=== PATIENT | female | born 1990 | race Caucasian/White ===

== ENCOUNTER → 2019-06-12 10:08 | Outpatient (CLI) | payer OTHER, SELFPAY ==
[2019-06-12 14:35] LABS: Urine Chlamydia NOT DETECTED; Urine N gonorrhoeae NOT DETECTED
== END ==
PROVIDERS: Visit Provider Obstetrics & Gynecology
DX: Z34.01 Encounter for supervision of normal first pregnancy, first trimester (principal)
CPT/HCPCS: 87491; 87591

== ENCOUNTER → 2019-06-26 14:56 | Outpatient (RCR) | payer OTHER, SELFPAY ==
[2019-06-26] MEDS: LACTATED RINGERS 1,000 ML 1000 ML IV (16:01)
[2019-06-26] MEDS: ONDANSETRON 4 MG/2 ML INJ IV ×2 (16:07→19:11)
[2019-06-26 16:12] VITALS: BP 119/74; PULSE 66; RESP 16; TEMP 36.6
[2019-06-26 16:16] LABS: Blood Urea Nitrogen 8 mg/dL (7-17); Calcium 10.2 mg/dL (8.4-10.2); Carbon Dioxide 22 mmol/L (22-32); Chloride 101 mmol/L (98-107); Estimated Glomerular Filt Rate > 60.0 mL/min (>60); Glucose 81 mg/dL (70-100); Sodium 135 mmol/L (137-145)
[2019-06-26 16:17] LABS: HEMOLYSIS 229 (0-50)
[2019-06-26 16:47] LABS: Potassium 4.8 mmol/L (3.4-5.1)
[2019-06-26] MEDS: MAGNESIUM SULFATE 2 GM, FOLIC ACID 1 MG, THIAMINE 100 MG, MULTIVITAMIN 10 ML in SODIUM ... IV (17:04)
--- NOTE | 2019-06-26 17:35 | PM.PN.1 ---
Subjective Subjective Date Patient Seen: 06/26/19 Time Patient Seen: 17:00 Interval history: This patient is a 29yo @8+1, sent to triage from the OB clinic due to nausea and vomiting of . The patient had been vomiting q3-4 hours, and was unable to keep even fluids down. She was sent for IV hydration and IV zofran. She denied OB complaints such as VB or cramping, and denied diarrhea, abdominal pain, fevers, chills, flank pain, dysuria, or any other complaints. The nausea has been slowly worsening over the past two weeks, and she has zofran at home but has been avoiding using it out of concern about using medications. 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 Overall appearance much improved since clinic. Const General: cooperative, healthy appearing and comfortable Orientation: alert, awake and oriented x3 Objective Labs Result Diagrams: 06/26/19 15:50 Labs: Laboratory Results - last 24 hr 06/26/19 15:50 Sodium 135 L Potassium 4.8 Chloride 101 Carbon Dioxide 22 BUN 8 Creatinine 0.50 L Estimated GFR > 60.0 BUN/Creatinine Ratio 16.0 Glucose 81 Calcium 10.2 Assessment & Plan Assessment & Plan narrative: This patient is a 29-year-old at 8 weeks 1 day presenting for IV hydration, IV antiemetics, and a p.o. challenge. We discussed that the patient has outpatient medications that she can use including using vitamin B6 and Unisom to approximate diclegis, which is not covered by her insurance. The patient will also be given a renewal of ODT Zofran. The patient will also be referred to the Infusion Center, where she can present for IV hydration and IV Zofran as needed. We discussed the expected time course of her nausea and vomiting of , symptoms to look out for common reasons for return. We discussed that should the patient get home and be unable to tolerate p.o. intake or maintain her hydration status, she should return to the emergency room and will require admission for further antiemetic therapy. Time Spent With Patient Time with patient: 25 - 35 minutes
== END ==
LOC: INF 14:56
PROVIDERS: Visit Provider Obstetrics & Gynecology
DX: O21.0 Mild hyperemesis gravidarum (principal); Z3A.08 8 weeks gestation of pregnancy
CPT/HCPCS: 36592; 80048; J3475

== ENCOUNTER 2019-07-10 16:33 | Observation (INO) | payer OTHER, SELFPAY ==
[2019-07-10] MEDS: LACTATED RINGERS 1,000 ML 1000 ML IV (17:00)
[2019-07-10] MEDS: ONDANSETRON 4 MG/2 ML INJ IV (17:28)
--- NOTE | 2019-07-10 17:53 | P.TNLD_ITS ---
Visit Information Visit Information Primary OB Provider: Winter Larios On-call OB Provider: Winter Larios Reason for Evaluation: Yes other Comments/Additional reasons for admission: This patient is a 29-year-old at 10 weeks 1 day with a history of nausea and vomiting of , presenting with worsening nausea and vomiting and intolerance of p.o. intake since last night. The patient reports that since her admission 2 weeks ago, she had been doing well on the regimen of B6 and Unisom with Zofran for breakthrough symptoms, not requiring a visit to the Infusion Center. However, over the weekend, she went on a family camping trip, and was left adherent to this regimen. She reports that she began having nausea and vomiting yesterday evening, and this worsened over night and this morning until she was unable to tolerate any p.o. intake. She presented to the hospital for evaluation. She denies any other obstetrical complaints. Vital Signs Vital Signs: 113/54, HR 64, 97.6F PFSH Surgical History Anesthesia (Resolved) [place] teeth removed (Acute ~2011) Family History Father History of factor V Leiden mutation Hypertension Hyperlipidemia Mother CMML (chronic myelomonocytic leukemia) Cancer Hyperlipidemia Hypertension Sister Hypothyroidism Sister History of factor V Leiden mutation Grandfather Skin cancer AAA (abdominal aortic aneurysm) Grandmother Stroke Grandfather History of factor V Leiden mutation History of heart disease Grandmother Diabetes mellitus Social History marital status: household members: spouse pets and animals: Yes (dogs) education level: college 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 movement visualized, adequate fluid. Skin General: no rashes or lesions noted and elasticity normal Diagnosis, Plan/Disposition Final Diagnosis (1) Nausea and vomiting during : Current Visit: Yes Status: Acute Problem details: This patient is already feeling improved, having received most of a L of lactated Ringer's and IV Zofran. The patient has crackers and Sprite at bedtime, and is beginning a p.o. challenge. status is reassuring. We discussed resuming her prior effective regimen, and calling or presenting to the Infusion Center as necessary. The patient vocalized understanding. Plan/Disposition Plan: Patient for discharge home when tolerating p.o.. OB Disposition: home
[2019-07-10 18:22] VITALS: BP 113/54; RESP 18; TEMP 36.4
[2019-07-10 18:26] VITALS: BP 113/54; RESP 18; TEMP 36.4
== END 2019-07-10 18:05 | disposition home or self-care (01) ==
LOC: LABOR 16:34
PROVIDERS: Admitting Provider Obstetrics & Gynecology; Visit Provider Obstetrics & Gynecology
DX: O21.9 Vomiting of pregnancy, unspecified (principal); Z3A.10 10 weeks gestation of pregnancy
CPT/HCPCS: 76815; 96360; G0378; G0379; J2405

== ENCOUNTER → 2019-07-12 14:55 | Outpatient (CLI) | payer OTHER, SELFPAY ==
[2019-07-12 15:23] LABS: Appearance Urine UA CLEAR; Bilirubin Urine UA NEGATIVE (NEGATIVE); Color Urine UA YELLOW; Glucose Urine UA NEGATIVE (Negative); Ketones Urine UA NEGATIVE (NEGATIVE); Leukocyte Esterase Urine UA NEGATIVE (NEGATIVE); Nitrite Urine UA NEGATIVE (Negative); Occult Blood Urine UA NEGATIVE (Negative); Protein Urine UA NEGATIVE (Negative); Specific Gravity Urine UA <=1.005 (1.000-1.035)
[2019-07-12 15:23] LABS: Add Manual Diff / Slide Review NO; Basophils Absolute Auto 0 /uL (0-100); Basophils Percent Auto 0.4 % (0-2); Eosinophils Absolute Auto 100 /uL (0-450); Eosinophils Percent Auto 0.8 % (2-4); Hemoglobin 13.8 g/dL (12.0-16.0); Lymphocytes Absolute Auto 2800 /uL (1100-4500); Mean Corpuscular HGB Conc 33.6 % (30-36); Mean Corpuscular Hemoglobin 29.8 PG (26-34); Mean Corpuscular Volume 88.7 fL (80-100); Monocytes Absolute Auto 700 /uL (0-900); Monocytes Percent Auto 7.4 % (3-14); Neutrophils Absolute Auto 5700 /uL (1500-7000); Neutrophils Percent Auto 61.4 % (50-75); Platelet Count 296 X10^3/uL (150-400); Red Blood Cell Count 4.62 X10^6/uL (4.0-5.2); White Blood Cell Count 9.2 X10^3/uL (4.5-11.0)
[2019-07-12 15:25] LABS: pH Urine UA 6.5 (4.5-8.0)
[2019-07-12 16:45] LABS: Hepatitis B Surface Antigen NEGATIVE s/c (NEGATIVE); Rubella Antibody IgG 89.8 IU/mL (>15)
[2019-07-12 17:13] LABS: HIV 1 & 2 Ab/Ag 4th Gen Combo NEGATIVE (NEGATIVE); Hep C Virus Ab w/Reflex Quant NEGATIVE s/c (NEGATIVE)
[2019-07-14 19:27] LABS: RPR Screen Nonreactive (Nonreactive)
== END ==
PROVIDERS: Visit Provider Obstetrics & Gynecology
DX: D68.51 Activated protein C resistance (principal); Z34.01 Encounter for supervision of normal first pregnancy, first trimester
CPT/HCPCS: 36415; 80055; 81003; 86787; 86803; 86850; 86900; 86901; 87086; 87389

== ENCOUNTER → 2019-11-06 15:49 | Outpatient (CLI) | payer OTHER, SELFPAY ==
[2019-11-06 17:32] LABS: Hematocrit 38.2 % (36-46); Hemoglobin 12.6 g/dL (12.0-16.0)
[2019-11-06 19:20] LABS: GTT (PREG) 1 Hour PP 50gm Dose 145 mg/dL (76-139)
== END ==
PROVIDERS: PCP Nurse Practitioner Family; Referring Provider Obstetrics & Gynecology; Visit Provider Obstetrics & Gynecology
DX: Z34.02 Encounter for supervision of normal first pregnancy, second trimester (principal); Z3A.25 25 weeks gestation of pregnancy
CPT/HCPCS: 36415; 82950; 85014; 85018; 86850

== ENCOUNTER → 2019-12-26 08:16 | Outpatient (CLI) | payer OTHER, SELFPAY ==
[2019-12-26 09:42] LABS: Add Manual Diff / Slide Review NO; Basophils Absolute Auto 0 /uL (0-100); Basophils Percent Auto 0.4 % (0-2); Eosinophils Absolute Auto 0 /uL (0-450); Eosinophils Percent Auto 0.3 % (2-4); Hemoglobin 13.1 g/dL (12.0-16.0); Lymphocytes Absolute Auto 1400 /uL (1100-4500); Lymphocytes Percent Auto 14.6 % (25-40); Mean Corpuscular HGB Conc 33.5 % (30-36); Mean Corpuscular Volume 89.7 fL (80-100); Monocytes Absolute Auto 700 /uL (0-900); Monocytes Percent Auto 7.6 % (3-14); Neutrophils Absolute Auto 7600 /uL (1500-7000); Neutrophils Percent Auto 77.1 % (50-75); Platelet Count 243 X10^3/uL (150-400); Red Blood Cell Count 4.35 X10^6/uL (4.0-5.2); White Blood Cell Count 9.8 X10^3/uL (4.5-11.0)
[2019-12-26 09:49] LABS: Aspartate Aminotransferase 18 IU/L (14-36); BUN Creatinine Ratio 19.1 (6-22); Blood Urea Nitrogen 9 mg/dL (7-17); Estimated Glomerular Filt Rate > 60.0 mL/min (>60); Uric Acid 5.2 mg/dL (2.5-6.2)
[2019-12-26 09:51] LABS: Creatinine Urine Random 217.6 mg/dL
[2019-12-26 09:54] LABS: Protein (Total) Urine Random < 5 mg/dL (0-12); Protein Creatinine Ratio Urine 0.02 GRAM/24H
== END ==
PROVIDERS: PCP Nurse Practitioner Family; Referring Provider Obstetrics & Gynecology; Visit Provider Obstetrics & Gynecology
DX: Z34.83 Encounter for supervision of other normal pregnancy, third trimester (principal)
CPT/HCPCS: 36415; 82570; 84156; 84450; 84550; 85025; 87086

== ENCOUNTER → 2020-01-02 08:54 | Outpatient (CLI) | payer OTHER, SELFPAY ==
[2020-01-03 10:55] LABS: Strep Grp B PCR NEG for Grp B Strep
== END ==
PROVIDERS: PCP Nurse Practitioner Family; Visit Provider Obstetrics & Gynecology
DX: Z34.03 Encounter for supervision of normal first pregnancy, third trimester (principal); Z3A.35 35 weeks gestation of pregnancy
CPT/HCPCS: 87653

== ENCOUNTER 2020-01-09 09:46 | Outpatient (CLI) | payer OTHER, SELFPAY ==
[2020-01-09 10:15] LABS: Add Manual Diff / Slide Review NO; Basophils Absolute Auto 0 /uL (0-100); Basophils Percent Auto 0.3 % (0-2); Eosinophils Absolute Auto 100 /uL (0-450); Eosinophils Percent Auto 0.7 % (2-4); Hematocrit 36.9 % (36-46); Hemoglobin 12.5 g/dL (12.0-16.0); Lymphocytes Absolute Auto 1600 /uL (1100-4500); Lymphocytes Percent Auto 17.1 % (25-40); Mean Corpuscular Hemoglobin 30.1 PG (26-34); Mean Corpuscular Volume 88.4 fL (80-100); Monocytes Absolute Auto 1000 /uL (0-900); Monocytes Percent Auto 10.2 % (3-14); Neutrophils Absolute Auto 6700 /uL (1500-7000); Neutrophils Percent Auto 71.7 % (50-75); Platelet Count 208 X10^3/uL (150-400); Red Blood Cell Count 4.17 X10^6/uL (4.0-5.2); Red Cell Distribution Width 14.1 % (11.6-14.8); White Blood Cell Count 9.4 X10^3/uL (4.5-11.0)
[2020-01-09 10:26] LABS: Aspartate Aminotransferase 18 IU/L (14-36); BUN Creatinine Ratio 18.2 (6-22); Blood Urea Nitrogen 8 mg/dL (7-17); Estimated Glomerular Filt Rate > 60.0 mL/min (>60)
--- NOTE | 2020-01-09 10:38 | P.TNLD_ITS ---
Visit Information Visit Information Date of evaluation: 01/09/20 Primary OB Provider: Winter Larios Reason for Evaluation: Yes non-stress test Comments/Additional reasons for admission: Patient is a 29yo @36 wks p resenting from office due to persistently elevated FHR in setting of copious movement. Patient has elevated BPs at home on home cuff that has readings significantly higher than clinic cuff today, for PIH labs given increased swelling. Vital Signs Vital Signs: 119/61, HR 78 PFSH Surgical History Anesthesia (Resolved) [place] teeth removed (Acute ~2010) Family History Father History of factor V Leiden mutation Hypertension Hyperlipidemia Mother CMML (chronic myelomonocytic leukemia) Cancer Hyperlipidemia Hypertension Sister Hypothyroidism Sister History of factor V Leiden mutation Grandfather Skin cancer AAA (abdominal aortic aneurysm) Grandmother Stroke Grandfather History of factor V Leiden mutation History of heart disease Grandmother Diabetes mellitus Social History marital status: household members: spouse pets and animals: Yes (dogs) education level: college 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) current occupational exposures/hazards: Yes seatbelt use: always Smoking Status: Never smoker substance use type: does not use Review of Systems Constitutional Constitutional: Reports system reviewed and no additional complaints, except as documented Objective Labs Result Diagrams: 01/09/20 10:09 01/09/20 10:09 Labs: Laboratory Results - last 24 hr 01/09/20 01/09/20 10:09 10:09 WBC 9.4 RBC 4.17 Hgb 12.5 Hct 36.9 MCV 88.4 MCH 30.1 MCHC 34.0 RDW 14.1 Plt Count 208 Neut % (Auto) 71.7 Lymph % (Auto) 17.1 L Callahan % (Auto) 10.2 Eos % (Auto) 0.7 L Baso % (Auto) 0.3 Neut # (Auto) 6700 Lymph # (Auto) 1600 Callahan # (Auto) 1000 H Eos # (Auto) 100 Baso # (Auto) 0 BUN 8 Creatinine 0.44 L Estimated GFR > 60.0 BUN/Creatinine Ratio 18.2 Uric Acid 5.0 AST 18 Evaluation Evaluation Baseline heart rate: 145 Variability: Average (6-10) monitor accelerations: Present monitor decelerations: Absent Category of Tracing: I Laboratory results: Laboratory Tests 01/09/20 01/09/20 10:09 10:09 WBC 9.4 RBC 4.17 Hgb 12.5 Hct 36.9 MCV 88.4 MCH 30.1 MCHC 34.0 RDW 14.1 Plt Count 208 Neut % (Auto) 71.7 Lymph % (Auto) 17.1 L Callahan % (Auto) 10.2 Eos % (Auto) 0.7 L Baso % (Auto) 0.3 Neut # (Auto) 6700 Lymph # (Auto) 1600 Callahan # (Auto) 1000 H Eos # (Auto) 100 Baso # (Auto) 0 BUN 8 Creatinine 0.44 L Estimated GFR > 60.0 BUN/Creatinine Ratio 18.2 Uric Acid 5.0 AST 18 Diagnosis, Plan/Disposition Plan/Disposition Plan: home with routine precautions. OB Disposition: home
[2020-01-09 11:21] LABS: Creatinine Urine Random 69.2 mg/dL; Protein (Total) Urine Random 11 mg/dL (0-12); Protein Creatinine Ratio Urine 0.15 GRAM/24H
== END 2020-01-09 10:40 | disposition home or self-care (01) ==
LOC: LABOR 10:24 → OB 01-10 07:42
PROVIDERS: PCP Nurse Practitioner Family; Referring Provider Obstetrics & Gynecology; Visit Provider Obstetrics & Gynecology
DX: O13.3 Gestational [pregnancy-induced] hypertension without significant proteinuria, third trimester (principal); O36.8330 Maternal care for abnormalities of the fetal heart rate or rhythm, third trimester, not applicable or unspecified; O99.113 Other diseases of the blood and blood-forming organs and certain disorders involving the immune mechanism complicating pregnancy, third trimester; D68.51 Activated protein C resistance; Z3A.36 36 weeks gestation of pregnancy
CPT/HCPCS: 36415; 59025; 82570; 84156; 84450; 84550; 85025; G0378; G0379

== ENCOUNTER → 2020-01-30 09:22 | Outpatient (CLI) | payer OTHER, SELFPAY | PROVIDERS: PCP Nurse Practitioner Family; Visit Provider Obstetrics & Gynecology | DX: Z34.03 Encounter for supervision of normal first pregnancy, third trimester (principal); R39.9 Unspecified symptoms and signs involving the genitourinary system; Z3A.39 39 weeks gestation of pregnancy | CPT/HCPCS: 87086 ==

== ENCOUNTER 2020-02-04 10:49 | Outpatient (CLI) | payer OTHER, SELFPAY ==
--- NOTE | 2020-02-04 14:31 | P.TNLD_ITS ---
Visit Information Visit Information Date of evaluation: 02/04/20 Primary OB Provider: Winter Larios Reason for Evaluation: Yes non-stress test Comments/Additional reasons for admission: Patient is a 29y P0 @40+0, presenting for scheduled NST as part of postdates testing. Otherwise uncomplicated . Vital Signs Vital Signs: 133/84, HR 86 PFSH Surgical History Anesthesia (Resolved) [place] teeth removed (Acute ~2010) Family History Father History of factor V Leiden mutation Hypertension Hyperlipidemia Mother CMML (chronic myelomonocytic leukemia) Cancer Hyperlipidemia Hypertension Sister Hypothyroidism Sister History of factor V Leiden mutation Grandfather Skin cancer AAA (abdominal aortic aneurysm) Grandmother Stroke Grandfather History of factor V Leiden mutation History of heart disease Grandmother Diabetes mellitus Social History marital status: household members: spouse pets and animals: Yes (dogs) education level: college occupational status: employed ([employer]) current occupational exposures/hazards: Yes seatbelt use: always Smoking Status: Never smoker substance use type: does not use Review of Systems Constitutional Constitutional: Reports system reviewed and no additional complaints, except as documented Evaluation Evaluation Baseline heart rate: 145 Variability: Moderate (11-25) monitor accelerations: Present monitor decelerations: Absent Contraction Frequency (minutes): 6 Uterine Contraction Intensity: Mild Category of Tracing: I Diagnosis, Plan/Disposition Plan/Disposition Plan: Patient to proceed to clinic for BPP. OB Disposition: home
== END 2020-02-04 11:16 | disposition home or self-care (01) ==
LOC: OB 02-05 15:00
PROVIDERS: PCP Nurse Practitioner Family; Referring Provider Obstetrics & Gynecology; Visit Provider Obstetrics & Gynecology
DX: O48.0 Post-term pregnancy (principal); O13.3 Gestational [pregnancy-induced] hypertension without significant proteinuria, third trimester; O99.113 Other diseases of the blood and blood-forming organs and certain disorders involving the immune mechanism complicating pregnancy, third trimester; D68.51 Activated protein C resistance; Z3A.40 40 weeks gestation of pregnancy
CPT/HCPCS: 59025; G0378; G0379

== ENCOUNTER 2020-02-06 16:48 | Inpatient (IN) | payer OTHER, SELFPAY ==
[2020-02-06 17:42] VITALS: BP 154/85
[2020-02-06 17:54] LABS: Add Manual Diff / Slide Review NO; Basophils Absolute Auto 0 /uL (0-100); Basophils Percent Auto 0.3 % (0-2); Eosinophils Absolute Auto 100 /uL (0-450); Eosinophils Percent Auto 0.4 % (2-4); Hematocrit 38.4 % (36-46); Hemoglobin 13.5 g/dL (12.0-16.0); Lymphocytes Absolute Auto 2100 /uL (1100-4500); Lymphocytes Percent Auto 17.7 % (25-40); Mean Corpuscular HGB Conc 35.1 % (30-36); Mean Corpuscular Hemoglobin 31.1 PG (26-34); Mean Corpuscular Volume 88.6 fL (80-100); Monocytes Absolute Auto 900 /uL (0-900); Monocytes Percent Auto 8.1 % (3-14); Neutrophils Absolute Auto 8600 /uL (1500-7000); Neutrophils Percent Auto 73.5 % (50-75); Red Blood Cell Count 4.33 X10^6/uL (4.0-5.2); Red Cell Distribution Width 15.7 % (11.6-14.8); White Blood Cell Count 11.7 X10^3/uL (4.5-11.0)
[2020-02-06 19:16] LABS: Platelet Count 291 X10^3/uL (150-400)
--- NOTE | 2020-02-06 19:23 | P.HPOB_ITS ---
OB HPI Date/Time Date of admission: 02/06/20 Date Patient Seen: 02/06/20 Time Patient Seen: 19:00 History of Present Condition Chief complaint: Eval of Labor : 1 Para: 0 Estimated Date of Delivery: 02/04/20 Estimated Gestational Age (weeks): 40 Narrative: Felicita Deras is a 29 year old @40+2 presenting after approximately 36 hours of PROM for clear fluid, now with contractions q2-4. Patient reports good movement and no vaginal bleeding, and reports that she wasn't certain if she had broken her water or had increased vaginal discharge. She otherwise feels well with no WARD, visual changes, fevers, chills, or other complaints. Her was complicated early by nausea and vomiting requiring admission for IV fluids, which resolved by the second trimester. The patient has a history of factor V leiden heterozygosity, with no personal history of clots. She has no other contributory second operator, medical, surgical, or family history. The patient is rh negative, and received rhogam at 28 weeks. History of Present care: good care, initiated at week # (6), number of visits (38) and pounds weight gain (38) Dating criteria: LMP confirmed by 1st trimester US Ultrasounds: normal 1st trimester US and normal mid trimester US Obstetrical complications: none Medical complications: none Preadmission Labs Integrated screen: Declined genetic testing 1 hr GTT: 145 3 hr GTT: 1 hr (passed 3 hr GTT, performed at [facility], see scans) Evaluation Evaluation Baseline heart rate: 150 Variability: Moderate (11-25) monitor accelerations: Present monitor decelerations: Absent Contraction Frequency (minutes): 4 Uterine Contraction Intensity: Moderate Category of Tracing: I Laboratory results: Laboratory Tests 02/06/20 02/06/20 17:30 18:21 WBC 11.7 H RBC 4.33 Hgb 13.5 Hct 38.4 MCV 88.6 MCH 31.1 MCHC 35.1 RDW 15.7 H Plt Count 291 Neut % (Auto) 73.5 Lymph % (Auto) 17.7 L Page % (Auto) 8.1 Eos % (Auto) 0.4 L Baso % (Auto) 0.3 Neut # (Auto) 8600 H Lymph # (Auto) 2100 Page # (Auto) 900 Eos # (Auto) 100 Baso # (Auto) 0 Blood Type A Negative Antibody Screen Negative Comments: baseline 135 on admission, now with prolonged accelerations and patient discomfort complicating monitoring. [facility] Surgical History Anesthesia (Resolved) [place] teeth removed (Acute ~2011) Family History Father History of factor V Leiden mutation Hypertension Hyperlipidemia Mother CMML (chronic myelomonocytic leukemia) Cancer Hyperlipidemia Hypertension Sister Hypothyroidism Sister History of factor V Leiden mutation Grandfather Skin cancer AAA (abdominal aortic aneurysm) Grandmother Stroke Grandfather History of factor V Leiden mutation History of heart disease Grandmother Diabetes mellitus Social History marital status: household members: spouse pets and animals: Yes (dogs) education level: college 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) current occupational exposures/hazards: Yes seatbelt use: always Smoking Status: Never smoker substance use type: does not use Meds Home Medications and Allergies Home Medications Medication Instructions Recorded Confirmed Type prenat.vits,john,[id number] 1 tab PO DAILY 06/26/19 09/26/19 History ondansetron 4 mg disintegrating See Rx Instructions .ROUTE 08/01/19 09/26/19 Rx tablet .COMPLEX #20 each metoclopramide HCl 10 mg 10 mg PO Q6H #20 tab 01/02/20 01/02/20 Rx disintegrating tablet Allergies Allergy/AdvReac Type Severity Reaction Status Date / Time adhesive tape Allergy Rash Verified 12/26/19 08:05 Review of Systems Constitutional Constitutional: Reports system reviewed and no additional complaints, except as documented Cardiovascular Cardiovascular: Reports system reviewed and no additional complaints, except as documented Respiratory Respiratory: Reports system reviewed and no additional complaints, except as documented Gastrointestinal Gastrointestinal: Reports as per HPI Genitourinary Genitourinary: Reports as per HPI Neurologic Neurologic: Reports system reviewed and no additional complaints, except as documented Exam Vital Signs (past 8 hours): 142/84, P 79, T36.4C Const Other: No ill appearing but laboring GI Palpation: soft and No tender External Female Exam: normal external appearance Skin General: no rashes or lesions noted Objective Labs Result Diagrams: 02/06/20 17:30 Labs: Laboratory Results - last 24 hr 02/06/20 02/06/20 17:30 18:21 WBC 11.7 H RBC 4.33 Hgb 13.5 Hct 38.4 MCV 88.6 MCH 31.1 MCHC 35.1 RDW 15.7 H Plt Count 291 Neut % (Auto) 73.5 Lymph % (Auto) 17.7 L Page % (Auto) 8.1 Eos % (Auto) 0.4 L Baso % (Auto) 0.3 Neut # (Auto) 8600 H Lymph # (Auto) 2100 Page # (Auto) 900 Eos # (Auto) 100 Baso # (Auto) 0 Blood Type A Negative Antibody Screen Negative Assessment and Plan Assessment and Plan Assessment and Plan narrative: This patient is admitted with contractions after prolonged rupture of membranes, though she shows no signs of infection at this time with normal vital signs and no WBC elevation. testing was reassuring on admission, and is now complicated by the patient's discomfort with contractions and imminent epidural. The patient is receiving a 1L IV LR bolus as both management of ?elevated baseline vs. prolonged accelerations, and will receive an epidural expeditiously. Cervical exams will be minimized, but one repeated when she is comfortable to assess need to augment with pitocin. - Close monitoring of vitals and for other signs of infection - cEFM, toco - Labs sent and WNL for labor - IV fluids and conservative interventions as needed
[2020-02-06] MEDS: LACTATED RINGERS 1,000 ML 1000 ML IV (19:28)
--- NOTE | 2020-02-06 20:17 | PM.AN.REGBLK ---
Regional Block Pre-procedure Procedure: Continuous Lumbar Epidural for L&D Attending OB provider: Winter Larios PMH/MAC narrative: term labor, PROM x 36h, currently afebrile, PMH significant for heterozygous Factor V Leiden, no history of thrombosis Hx: No personal or family history of anesthesia problems. ASA Class: II Labs: Hct 38.4 % (36-46) 02/06/20 17:30 Plt Count 291 X10^3/uL (150-400) 02/06/20 17:30 Medications: Current Medications Generic Name Dose Route Start Last Admin Trade Name Freq PRN Reason Stop Dose Admin Diphenhydramine HCl 25 mg 02/06/20 19:38 Benadryl IV Q10M PRN Pruritis FENT 2MCG/ML BUPIV 0.125% EPI 200 mcg in 100 mls @ 6 mls/hr 02/06/20 19:45 Fentanyl/Bupiv/Ns 2mcg/Ml - 0.125% EPIDURAL CONT TESSA Allergies: Allergies Allergy/AdvReac Type Severity Reaction Status Date / Time adhesive tape Allergy Rash Verified 12/26/19 08:05 Procedure Insertion date: 02/06/20 Insertion time: 20:05 Prep/Local: betadine x3 Interspace: L2-3 Patient position: sitting Needle: 18 gauge Socuretead (CSE 27g Pencan through Hustead, clear CSF, 1mL 0.25% bupiv) Loss of resistance with: saline USMAN at (cm): 5 Catheter placed at SKIN (cm): 10 Catheter in SPACE (cm): 5 Insertion: No Blood, No Paresthesia with insertion, No Paresthesia with injection and No Test dose reaction Initial Medications TEST DOSE time: 19:58 TEST DOSE: 1.5% lidocaine with epinephrine 1:200k (mL): 3 BOLUS DOSE time: 20:03 BOLUS DOSE (mL): 3 BOLUS DOSE med: other (infusate) Infusion INFUSION: 0.125% bupivacaine and with fentanyl 2 mcg/mL Initial rate (mL/hr): 6 Subsequent interventions: 23:40 50mcg fentanyl and 4mL 0.25% bupiv... no change, one sided block. 00:00, epidural replaced one level lower. Betadine x3, USMAN saline at 5cm, Micaelatead, CSE with 27g Pencan, 0.5mL 0.25% bupiv, catheter to 10cm at skin, 3mL 1.5% lido with epi (negative response), 3mL bolus of infusate, 6mL/h with good bilateral block. 03:00 5mL 0.25% bupiv and 50mcg fentanyl. 03:10 6mL 2% chloroprocaine 03:24 6mL 2% chloroprocaine - good relief 04:20 10mL 2% lidocaine 04:35 10mL 2% lidocaine, minimal relief 05:16, to OR with plan for GA d/t inadequate LEP coverage Post-procedure Anesthesia time START: 19:51 Anesthesia time END: 05:16
[2020-02-06] MEDS: CALCIUM CARBONATE 500 MG TAB 1000 MG PO ×2 (20:41→22:35)
[2020-02-06] MEDS: OXYTOCIN PREMIX 30 UNIT/500 ML PLAST..BAG IV (20:41)
--- NOTE | 2020-02-06 23:31 | PM.OBPNLAB ---
Date/Time Date Patient Seen: 02/06/20 Time Patient Seen: 23:31 Pain Control Pain control: epidural (less effective on left side) Pelvic Exam Amniotic membrane status: Leaking (clear ) Comments: VSS. T 36.1C, pulse 91, BP 137/71 Contractions Contractions on admission: regular Pitocin rate (mU/min): 2 Contraction frequency (min): 2 Contraction pattern: Regular Contraction intensity: Strong/Firm Status status: Category l Heart Rate Baseline: 135 Monitor Accelerations: Present Monitor Decelerations: Absent Monitor Variability: Moderate Assessment and Plan Assessment: induction ongoing Plan: continuous present management Comments: Cat 1 EFM for several hours, no signs of maternal or infection. Discussed with patient that subsequent cervical exams increase risk of infection, with no clinical changes necessitating repeat exam at this time. Discussed pitocin protocol. Discussed repeat SVE at 48 hours of rupture, to establish effectiveness of pitocin induction and assess progress with further plan tomorrow. Patient to remain continuously externally monitored overnight, on pulse ox to monitor for maternal tachycardia, q1-2 hr temperature checks. Patient and partner vocalized understanding.
[2020-02-07] MEDS: ONDANSETRON 4 MG/2 ML INJ (00:27)
[2020-02-07] MEDS: FAMOTIDINE 20 MG/50 ML PIGGYBACK 200 MG IV (03:02)
[2020-02-07] MEDS: FENT 2MCG/ML BUPIV 0.125% EPI 200 MCG/100 ML PLAST..BAG 6 MCG EPIDURAL (03:06)
--- NOTE | 2020-02-07 03:42 | PM.OBPNLAB ---
Date/Time Date Patient Seen: 02/07/20 Time Patient Seen: 03:42 Pain Control Pain control: epidural (replaced and bolused) Pelvic Exam Dilation (cm): 7 Effacement (%): 100 station: 0 (caput, OP ) Amniotic membrane status: Leaking (clear ) Contractions Contractions on admission: regular Pitocin rate (mU/min): 5 Contraction frequency (min): 2 Contraction pattern: Regular Contraction intensity: Strong/Firm Status status: Category l Heart Rate Baseline: 145 Monitor Accelerations: Present Monitor Decelerations: Early Comments: VSS, afebrile Assessment and Plan Assessment: induction ongoing Plan: continuous present management
--- NOTE | 2020-02-07 04:40 | PM.OBPNLAB ---
Date/Time Date Patient Seen: 02/07/20 Time Patient Seen: 04:40 Pain Control Pain control: epidural Comments: Patient has functioning epidural in that catheter is properly placed, but has received multiple boluses with only a short period of relief. Pelvic Exam Dilation (cm): 7 Effacement (%): 100 station: 0 (significant caput) Amniotic membrane status: Leaking (clear ) Contractions Pitocin rate (mU/min): 0 Contraction frequency (min): 2 Contraction pattern: Regular Contraction intensity: Strong/Firm Status status: Category ll Heart Rate Baseline: 140 Monitor Accelerations: Absent Monitor Decelerations: Variable Monitor Variability: Minimal Comments: pitocin off, patient being bolused Assessment and Plan Plan: Comments: The patient has poor pain control and is struggling to cope, has made minimal vertex descent with significant molding and OP presentation with an EFW over 8#, and the patient is beginning to be tachycardic and feel flushed and warm, though temperature is 97.1C. We discussed concern for incipient chorioamnionitis, concern for abnormal labor progression, and pain control options. We discussed the risks of c section including infection, hemorrhage, damage to bowel and bladder, and risk to future pregnancies. All questions were answered, and informed consent was obtained. Patient will be prophylaxed with SCDs intraoperatively, and lovenox postoperatively. - Patient for 2g ancef and 500mg IV Azithromycin, along with betadine vaginal prep
[2020-02-07 04:53] LABS: COVID19 -Nasal RAPID Negative (Negative)
[2020-02-07] MEDS: AZITHROMYCIN 500 MG in DEXTROSE 5% IN WATER 250 ML IV (05:16)
[2020-02-07] MEDS: CEFAZOLIN 2 GM/100 ML FROZ.PIGGY IV (05:24)
--- NOTE | 2020-02-07 05:51 | SUR.OPER ---
Supine on Padded OR bed, head on pillow, safety belt at thigh, arms secured on padded arm boards at <90 degrees abduction. Bump under right buttock. Legs uncrossed with pillow under knees, gel pad to heels, tape over blanket to lower legs.
[2020-02-07] MEDS: ACETAMINOPHEN IV 1,000 MG/100 ML VIAL 400 MG IV (05:55)
--- NOTE | 2020-02-07 06:26 | SUR.OPER ---
FHR 139 TOB [id number] baby girl Cord blood x 2 and placenta given to OB nurse
[2020-02-07 06:27] VITALS: BP 106/75; PULSE 111; RESP 13; TEMP 36.9; O2SAT 97
[2020-02-07 06:32] VITALS: BP 143/91; PULSE 113; RESP 12; O2SAT 96
[2020-02-07 06:37] VITALS: BP 137/89; PULSE 104; RESP 12; O2SAT 95
--- NOTE | 2020-02-07 06:39 | PM.OP.1 ---
Operative Date/Time/Diagnoses Date of procedure: 02/07/20 Time of procedure: 05:39 Pre-op diagnosis: arrest of dilation, maternal intolerance of labor, prolonged rupture Post-op diagnosis: same Procedure & Clinicians Procedure: primary section Same procedure as scheduled: Yes Indications: maternal intolerance of labor, prolonged rupture Surgeon: Winter Larios Java Programmer Analyst: Disha Bronson Anesthesia Type: General Operative Notes Findings: Normal uterus, tubes, and ovaries Closure Type: primary Specimen(s): none sent Estimated Blood Loss (mL): 850 Procedure in detail: EBL: 850ccs Fluids:1700ccs UOP: 150ccs yellow urine Findings: Female infant in cephalic presentation, Apgars 8+9, weight 7#11, normal uterus, tubes, ovaries. Procedures: The patient was taken to the operating room and prepped and draped in the normal sterile fashion in the dorsal supine position with a leftward tilt. General anesthesia was obtained, and a Pfannenstiel skin incision was made with a scalpel and carried through to the underlying layer of fascia. The fascia was incised in the midline and the incision extended laterally with Xie scissors. The superior aspect of this incision was grasped with Geena clamps, elevated. and the underlying rectus muscles dissected off bluntly. Attention was then turned to the inferior aspect of this incision which, in a similar fashion, was grasped, tented up with the Geena clamps, and the rectus muscles dissected off bluntly. The rectus muscles were then in the midline, and the peritoneum identified, tented up, and entered sharply with Metzenbaum scissors. The peritoneal incision was extended superiorly and inferiorly with good visualization of the bladder. The bladder blade was inserted and the vesico uterine peritoneum identified, grasped with pickups, and entered sharply with the Metzenbaum scissors. This incision was extended laterally, and the bladder flap created digitally. The bladder blade was then reinserted and the lower uterine segment incised in transverse fashion with the scalpel. The uterine incision was bluntly extended laterally. The bladder blade was removed, and the infant's head delivered atraumatically. The cord was milked and then clamped and cut due to general anesthesia. The infant was handed off to awaiting pediatricians. The placenta was then removed manually, and the uterus was exteriorized and cleared of all clots and debris. The uterine incision was repaired with 1-0 chromic in a running, locked fashion a 2nd layer of the same suture was used to obtain excellent hemostasis. The uterus was returned to the abdomen, and the gutters were cleared of all clots and debris. The bladder flap was closed with 3-0 vicryl in a running fasion, the peritoneum was closed with 3-0 Vicryl, and the fascia reapproximated with 0 Vicryl in a running fashion. The subcutaneous layer was placed with 3 0 Vicryl in an interrupted fashion and the skin was closed with 4-0 biosyn in a running fashion. The patient tolerated the procedure well, and sponge lap and needle counts were correct x2. 2 g of Ancef and 500mg Azithromycin were given at commencement of the case. The patient was taken to the recovery room in stable condition. Complications: none Post-operative Condition: stable Disposition: PACU Plan for aftercare: - Routine pain control - ADAT - Ambulation when feasible, VT this PM - 40 mg subq lovenox daily starting at 2 PM - Rhogam prior to discharge
[2020-02-07 06:43] VITALS: BP 133/86; PULSE 107; RESP 10; TEMP 36.9; O2SAT 96
[2020-02-07 06:49] VITALS: BP 135/83; PULSE 103; RESP 12; O2SAT 96
[2020-02-07] MEDS: METOCLOPRAMIDE 10 MG/2 ML INJ IV (08:23)
[2020-02-07] MEDS: LACTATED RINGERS 1,000 ML 100 ML IV (08:23)
[2020-02-07] MEDS: OXYCODONE IR 5 MG TABLET PO ×2 (09:30→16:18)
[2020-02-07] MEDS: KETOROLAC 30 MG/ML VIAL IV ×2 (12:14→18:26)
[2020-02-07] MEDS: ENOXAPARIN 40 MG/0.4 ML SYRINGE SUBCUT (14:01)
[2020-02-07] MEDS: RHO(D) IMMUNE GLOBULIN 1,500 UNIT SYRINGE 1500 UNIT IM (16:38)
[2020-02-08] MEDS: OXYCODONE IR 5 MG TABLET PO ×4 (00:11→17:55)
[2020-02-08] MEDS: KETOROLAC 30 MG/ML VIAL IV (00:11)
[2020-02-08 06:56] LABS: Add Manual Diff / Slide Review NO; Basophils Absolute Auto 0 /uL (0-100); Basophils Percent Auto 0.3 % (0-2); Eosinophils Absolute Auto 100 /uL (0-450); Eosinophils Percent Auto 0.6 % (2-4); Hematocrit 30.7 % (36-46); Hemoglobin 10.6 g/dL (12.0-16.0); Lymphocytes Absolute Auto 2900 /uL (1100-4500); Lymphocytes Percent Auto 19.8 % (25-40); Mean Corpuscular HGB Conc 34.5 % (30-36); Mean Corpuscular Volume 89.8 fL (80-100); Monocytes Absolute Auto 1100 /uL (0-900); Monocytes Percent Auto 7.4 % (3-14); Neutrophils Absolute Auto 10600 /uL (1500-7000); Neutrophils Percent Auto 71.9 % (50-75); Platelet Count 199 X10^3/uL (150-400); Red Blood Cell Count 3.42 X10^6/uL (4.0-5.2); Red Cell Distribution Width 15.7 % (11.6-14.8); White Blood Cell Count 14.7 X10^3/uL (4.5-11.0)
--- NOTE | 2020-02-08 09:09 | PM.OBPN.1 ---
Subjective - OB Subjective Patient comments: no complaints, pain well controlled, incisional pain, tolerating diet and flatus present baby status: doing well Supai feeding status: exclusively breast feeding Narrative: This patient is POD#1 s/p pCS for failure to progress in the setting of prolonged rupture. The patient is meeting postoperative goals this morning, ambulating, tolerating PO, voiding, passing flatus, with mild lochia. She reports that her pain is somewhat well controlled, and we discussed alternating motrin and tylenol with opioids for breakthrough pain. We discussed encouraging ambulation and likely discharge tomorrow. Date Patient Seen: 02/08/20 Time Patient Seen: 09:09 Exam Vital Signs (past 8 hours): 135/88, HR 100, T 97.7F, RR 17 Oxygen Delivery Method Room Air Const General: cooperative, healthy appearing and comfortable Resp Effort & Inspection: normal respiratory effort Auscultation: clear to auscultation bilaterally Cardio Rate: regular rate Rhythm: regular rhythm GI Palpation: soft and No tender Other: fundus firm, well below u. Incision covered by aquacell, c/d/i Extrem General: normal to inspection and pedal edema Objective Labs Result Diagrams: 02/08/20 06:33 Labs: Laboratory Results - last 24 hr 02/08/20 02/08/20 06:33 06:33 WBC 14.7 H RBC 3.42 L Hgb 10.6 L Hct 30.7 L MCV 89.8 MCH 31.0 MCHC 34.5 RDW 15.7 H Plt Count 199 Neut % (Auto) 71.9 Lymph % (Auto) 19.8 L [place] % (Auto) 7.4 Eos % (Auto) 0.6 L Baso % (Auto) 0.3 Neut # (Auto) 22101 H Lymph # (Auto) 2900 [place] # (Auto) 1100 H Eos # (Auto) 100 Baso # (Auto) 0 Maternal Bleed Negative Assessment & Plan Assessment and Plan (1) delivery delivered: Status: Acute Plan day: 1 plan OB: routine postop care Comments: This patient is recovering appropriately, meeting postoperative goals with routine care. Encouraged ambulation, PO intake and hydration, discussed return of bowel function. Patient to get 40u lovenox subq daily due to coagulopathy, to continue for 6 weeks . Patient for rhogam prior to discharge. Time Spent With Patient Time: Total time spent is greater than 50% in coordination of care (as documented) at patient's floor/unit and/or counseling patient: Time with patient: less than 15 minutes
[2020-02-08] MEDS: IBUPROFEN 600 MG TABLET PO ×2 (09:45→15:51)
[2020-02-08] MEDS: DOCUSATE 250 MG CAPSULE PO (09:46)
[2020-02-08] MEDS: LANOLIN OINT 7 GM 1 APPLIC TOP (09:46)
[2020-02-08] MEDS: ACETAMINOPHEN 325 MG TABLET 650 MG PO (13:28)
[2020-02-08] MEDS: ENOXAPARIN 40 MG/0.4 ML SYRINGE SUBCUT (14:11)
--- NOTE | 2020-02-08 16:11 | PM.OBDS.1 ---
Discharge Providers Provider Date of admission: 02/06/20 16:48 Discharge Date: 02/08/20 Primary care physician: BEBO Leon, OPERATIONS PLANNER-C Consults: 02/07/20 07:49 Consult to Multimedia Developer Routine Comment: Discharge provider: Winter Larios MD Summary Hospital Course Date Patient Seen: 02/08/20 Time Patient Seen: 16:11 Procedures: primary section Hospital Course: This patient presented at 40+2 after approx 36 hours of grossly ruptured membranes, and was found not to be in labor and augmented with pitocin. She was taken to the OR for primary section for arrest of dilation in the setting of OP presentation and signs of incipient chorioamnionitis. Her surgery was uncomplicated, and she was discharged on the evening of POD#1 with routine precautions and lovenox prophylaxis for her factor 5 leiden mutation. Patient received rhogam on POD#0. Peripartum Data Delivery Method: Section complications: none [place] 1: Gender: Female Disposition of : home Discharge Diagnosis (1) delivery delivered: Status: Acute Status at Discharge Cognitive/behavioral status at discharge: oriented Functional status at discharge: independent ambulation Overall status at discharge: patient is progressing back to baseline Time Spent with Patient Time attestation: Total time spent providing and/or coordinating discharge services: Time spent: Greater than 30 minutes Objective Labs Result Diagrams: 02/08/20 06:33 Labs: Laboratory Results - last 24 hr 02/08/20 02/08/20 06:33 06:33 WBC 14.7 H RBC 3.42 L Hgb 10.6 L Hct 30.7 L MCV 89.8 MCH 31.0 MCHC 34.5 RDW 15.7 H Plt Count 199 Neut % (Auto) 71.9 Lymph % (Auto) 19.8 L [place] % (Auto) 7.4 Eos % (Auto) 0.6 L Baso % (Auto) 0.3 Neut # (Auto) 80592 H Lymph # (Auto) 2900 [place] # (Auto) 1100 H Eos # (Auto) 100 Baso # (Auto) 0 Maternal Bleed Negative Exam Vital Signs (past 8 hours): Oxygen Delivery Method Room Air Discharge Plan Discharge Plan Patient Disposition: Home Discharge orders & Medications Prescriptions: New oxycodone 5 mg tablet 5 mg PO Q6H PRN (Reason: pain) Qty: 20 RF: 0 ibuprofen 600 mg tablet 600 mg PO Q6H PRN (Reason: pain (scale score 4-6)) Qty: 30 RF: 1 enoxaparin 40 mg/0.4 mL syringe 40 mg SUBCUT DAILY Qty: 4 RF: 5 Discontinued ondansetron 4 mg tablet,disintegrating See Rx Instructions .ROUTE .COMPLEX Qty: 20 RF: 1 prenat.vits,john,qcj-fxbr-ogges Tablet 1 tab PO DAILY RF: 0 metoclopramide HCl 10 mg tablet,disintegrating 10 mg PO Q6H Qty: 20 RF: 0 Follow up/Referrals: Winter Larios MD [Physician] - 1 Week Jenn Amador ARNP, OPERATIONS PLANNER-C [Primary Care Provider] - Diet/Activity/Treatments Diet: Regular Activity: Nothing in the vagina for 6 weeks. Avoid lifting over 10 lbs for 6 weeks. If you have increasing bleeding, fevers, chills, nausea, vomiting, headaches, chest pain, trouble breathing, palpitations, or any other symptoms or questions, call the clinic number to reach the doctor attraction worker or come to the emergency department. Skin/Wound/Dressing Care Report to your healthcare provider any signs of infection, such as:: chills, fever, night sweats, increased pain, unusual drainage and unusual redness Visit Report/Discharge Packet Instructions: DI for Discharge Data Primary Care Provider: Jenn Amador
[2020-02-08 16:35] VITALS: BP 133/83; PULSE 99; RESP 16; TEMP 37.1
== END 2020-02-08 18:15 | disposition home or self-care (01) | DRG 787 ==
PROVIDERS: Admitting Provider Obstetrics & Gynecology; PCP Nurse Practitioner Family; Referring Provider Obstetrics & Gynecology; Visit Provider Obstetrics & Gynecology
PROC: 10D00Z1 Extraction of Products of Conception, Low, Open Approach (ICD-10-PCS; CPT 59514; principal; 2020-02-07 05:40)
DX: O48.0 Post-term pregnancy (principal); O99.113 Other diseases of the blood and blood-forming organs and certain disorders involving the immune mechanism complicating pregnancy, third trimester; D68.51 Activated protein C resistance; Z3A.40 40 weeks gestation of pregnancy; Z37.0 Single live birth; O63.0 Prolonged first stage (of labor); O75.81 Maternal exhaustion complicating labor and delivery; Z11.59 Encounter for screening for other viral diseases
CPT/HCPCS: 36415; 59025; 59050; 59510; 59514; 84112; 85025; 85461; 86850; 86900; 86901; 87635; G0378; G0379; J0131; J0330; J0690; J1100; J1170; J1650; J1885; J2274; J2405; J2590; J2704; J2765; J2790; J3010